=== PATIENT | male | born 1990 | race African-American/Black ===

== ENCOUNTER 2017-05-22 04:58 | Emergency (ER) | payer SELFPAY ==
[~2017-05-22] VITALS: Ht 190.5 cm; Wt 72.7 kg
[2017-05-22] MEDS ORDERED: ALBU8HFA IH (05:07)
[2017-05-22] MEDS ORDERED: LIDOCAINE HCL 1% 10 ML VIAL INJ ONE (05:30)
[2017-05-22 05:53] VITALS: BP 125/68
== END 2017-05-22 05:56 | disposition home or self-care (01) ==
LOC: EMS 05:00
DX: S61.511A Laceration without foreign body of right wrist, initial encounter (principal); J45.909 Unspecified asthma, uncomplicated; X58.XXXA Exposure to other specified factors, initial encounter; Y93.89 Activity, other specified; Y92.89 Other specified places as the place of occurrence of the external cause; Y99.8 Other external cause status
CPT/HCPCS: 12001; 99283; J3490